=== PATIENT | female | born 1935 | race Caucasian/White ===

== ENCOUNTER 2017-06-13 09:40 | Inpatient (IN) | payer OTHER ==
[~2017-06-13] VITALS: Ht 157.5 cm; Wt 100.2 kg
[~2017-06-13 09:40] MED LIST: ACETAMINOPHEN-1 EAC1 PO; ACETAMINOPHEN325 M1 PO; ALDACTONE25 MG PO; AMLODIPINE BESY10 MG PO; AMOXICILLIN500 MG PO; AQUAPHOR OINTM105 GM TP; AQUAPHOR TP; ARANESP; ARANESP10 MCG/0.4 SC; ARANESP100 MCG/0. IV; ARANESP100 MCG/0. SC; ASPIR 8181 M1 PO; ASPIR-LOW81 MG PO; ASPIRIN EC325 MG PO; ATIVAN0.5 MG PO; ATIVAN1 MG PO; ATORVASTATIN CA40 MG PO; ATROVENT 0.06%15 ML BOTH NARES; ATROVENT 00.5 MG/2.5 IH; BUSPAR10 MG PO; BUSPIRONE HCL10 MG PO; CALAZIME TP; CALCIUM 500 MG1 EACH PO; CALCIUM500 M4 PO; CARVEDILOL12.5 MG PO; CARVEDILOL25 MG PO; CEFDINIR300 MG PO; CENTRUM SILVER1 EAC3 PO; CERTAVITE SR W1 EACH PO; CERTAVITE WITH1 EAC1 PO; CIPRO500 MG PO; COLACE100 MG PO; COLCRYS0.6 MG PO; COREG12.5 M1 PO; COREG25 M1 PO; COZAAR25 MG PO; COZAAR50 MG PO; CYANOCOBAL1000 MCG/2 IM; CYMBALTA30 MG PO; CYMBALTA60 MG PO; DAILY VALUE1 EACH PO; DELTASONE20 M1 PO; DOCUSATE SODIU100 MG PO; DULCOLAX10 MG PR; DULOXETINE HCL60 MG PO; DUONEB 2.5-0.5 M3 ML AEROSOL; DUONEB 2.5-0.5 M3 ML IH; EFFEXOR XR150 MG PO; FERGON240 MG PO; FERROUS GLUCON240 MG PO; FERROUS GLUCON324 MG PO; FERROUS SULFAT325 MG PO; FISH OIL 1,2001 EAC5 PO; FUROSEMIDE40 MG PO; FUROSEMIDE80 MG PO; GARAMYCIN5 M1 BOTH EYES; GLUCO BURST37.5 GM PO; GOLD BOND MEDI283 G1 TP; HUMALOG100 UNIT/1 SC; HUMALOG100 UNIT/2 SC; HYDROCODON-ACE1 EAC7 PO; IMDUR30 MG PO; INVANZ1 GM IM; INVANZ1 GM IV; IPRATR-ALBUTEROL3 ML IH; IPRATROPIU0.2 MG/1 M IH; ISOSORBIDE MONO30 MG PO; KETOCONAZOLE60 GM TP; LANTUS 10100 UNITS/ SC; LANTUS 3 M100 UNITS1 SC; LASIX20 MG PO; LASIX40 MG PO; LASIX40 MG/4 ML IM; LASIX80 MG PO; LEVAQUIN250 MG PO; LEVAQUIN500 MG PO; LEXAPRO20 MG PO; LIPITOR40 MG PO; LO-DOSE ASPIRIN81 M1 PO; LOSARTAN POTASS25 MG PO; LOTRIMIN AF24 GM TP; LOTRIMIN ULTRA12 GM TP; LOW DOSE ASPIRI81 M1 PO; MELATIN3 MG PO; MILK OF MAGN PO; MIRALAX255 GM PO; MONUROL SACHET 33 GM PO; MOVE FREE ULTR1 EACH PO; MULTIPLE VITAM1 EACH PO; NITROSTAT0.4 MG SL; NORCO 5/3251 TABLET PO; NORVASC10 MG PO; NORVASC5 MG PO; NOVOLIN,HU100 UNITS1 SC; NOVOLOG 10100 UNITS/ SC; NYAMYC60 GM TP; NYSTATIN60 GM TP; NYSTOP60 GM TP; OMEGA 3-6-9 CO1 EACH PO; OMEGA-3 1,0001 EAC1 PO; OMEGA-3 FISH O1 EAC8 PO; OMEGA-31000 M1 PO; OMEPRAZOLE20 MG PO; ONE-A-DAY ESSE1 EAC1 PO; OXYCODONE-ACET1 EACH PO; PERCOCET 5/31 TABLET PO; PHILLIPS'400 MG/5 M PO; PREDNISONE10 MG PO; PREDNISONE20 MG PO; PREDNISONE5 MG PO; PRILOSEC20 MG PO; ROCEPHIN2 GM/50 ML IV; SENNA PLUS TAB1 EACH PO; SPIRIVA RESPIMAT4 GM IH; SPIRONOLACTONE25 MG PO; TRAZODONE HCL50 MG PO; TUMS500 MG PO; TYLENOL REGULA325 MG PO; TYLENOL WITH C1 EACH PO; Tums,OsCal PO; VITAMIN D31000 UNI2 PO; ZITHROMAX250 MG PO; [UNRECOGNIZED DRUG - OTHER] PO
[2017-06-13 10:02] LABS: POINT-OF-CARE METER ID UU13113747
[2017-06-13 10:39] LABS: HEMATOCRIT 40.4 % (36.0-46.0); MCH 29.2 PG (29.0-34.0); MCHC 32.9 G/DL (30.0-36.0); MCV 88.8 FL (83-99); MEAN PLAT.VOLUME 11.1 uM^3 (9.5-12.4); PLATELET COUNT 184 K/uL (156-360); RBC DIS.WIDTH-CV 12.1 % (11.8-14.6); RBC DIS.WIDTH-SD 39.1 % (39-53); RED BLOOD COUNT 4.55 M/uL (3.80-5.20); WHITE BLOOD COUNT 9.6 K/uL (4.1-10.2)
[2017-06-13 10:53] LABS: CHLORIDE 106 mEq/L (99-109); POTASSIUM 4.3 mEq/L (3.7-5.4); SODIUM 143 mEq/L (136-147)
[2017-06-13 10:54] LABS: GLUCOSE 151 mg/dL (70-99)
[2017-06-13 10:56] LABS: ANION GAP 8 MEQ/L (2-14)
[2017-06-13 10:58] LABS: GFR ESTIMATE (CALCULATED) 46 mL/min/
[2017-06-13 10:59] LABS: UREA NITROGEN (BUN) 40 mg/dL (9-23)
[2017-06-13 10:59] LABS: TROP-I INTERPRETATION NEGATIVE; TROPONIN-I 0.02 ng/mL (0.0-0.30)
[2017-06-13 11:43] LABS: ADD MIUA? YES; BILIRUBIN NEGATIVE; BLOOD LARGE; COLOR YELLOW ((YELLOW)); GLUCOSE (STRIP) NEGATIVE; KETONES NEGATIVE; LEUKOCYTES LARGE; NITRITE NEGATIVE; PROTEIN (STRIP) 30; SPECIFIC GRAVITY 1.013 (1.000-1.030); UROBILINOGEN 0.2 MG/DL (0.2-1.0)
[2017-06-13 11:51] LABS: BACTERIA 3+ /HPF; EPITHELIAL CELLS RARE /HPF; MUCUS TRACE /LPF; RED BLOOD CELLS TNTC /HPF (0-5); UCUL ADDED? YES; WHITE BLOOD CELLS 30-40 /HPF (0-5); WHITE BLOOD CELLS CLUMP RARE /HPF (0-5)
[2017-06-13] MEDS ORDERED: ABILIFY2 MG PO (20:21)
[2017-06-13] MEDS ORDERED: LITE COAT ASPI325 M1 PO (20:22)
[2017-06-13] MEDS ORDERED: LIPITOR40 MG PO (20:23)
[2017-06-13] MEDS ORDERED: BUSPAR10 MG PO (20:25)
[2017-06-13] MEDS ORDERED: CERTAVITE SR W1 EACH PO (20:28)
[2017-06-13] MEDS ORDERED: EFFEXOR XR75 MG PO (20:37)
[2017-06-13] MEDS ORDERED: FERGON324 MG PO (20:41)
[2017-06-13] MEDS ORDERED: LANTUS 10100 UNITS/ SC ×2 (20:42→20:43)
[2017-06-13] MEDS ORDERED: LASIX40 MG PO (20:46)
[2017-06-13] MEDS ORDERED: ZITHROMAX250 MG PO (20:52)
[2017-06-13] MEDS ORDERED: BUSPIRONE HCL15 MG PO (20:54)
[2017-06-13 20:55] LABS: BASE EXCESS 3.2 mEq/L (-3 to +3); BICARBONATE 28.5 mEq/L (22-26); CARBOXY HGB 2.2 % (0-5); COMMENTS - BLOOD GASES A+C+; DEVICE NC; METHEMOGLOBIN 1.1 % (0-1.5); O2 FLOW 3 L/MIN; PCO2 45 mm Hg (35-45); PO2 66 mm Hg (80-100); SITE RR; pH 7.41 (7.35-7.45)
[2017-06-13] MEDS ORDERED: TRAZODONE HCL50 MG PO (21:04)
[2017-06-13] MEDS ORDERED: MIRALAX17 GM PO (21:06)
[2017-06-13 21:58] VITALS: BP 145/79
[2017-06-14 06:18] LABS: POINT-OF-CARE METER ID UU13113725
[2017-06-14 06:35] LABS: EOSINOPHIL (%) 3.1 % (0-5); EOSINOPHIL COUNT 0.3 K/uL (0-0.3); HEMATOCRIT 39.5 % (36.0-46.0); IMMATURE GRANULOCYTE (%) 0.5 % (0.0-0.7); INSTRUMENT ABS NEUTROPHIL CT 5.6 K/uL; LYMPHOCYTE COUNT 1.9 K/uL (1.0-2.8); MCH 29.4 PG (29.0-34.0); MCHC 32.9 G/DL (30.0-36.0); MCV 89.4 FL (83-99); MEAN PLAT.VOLUME 11.4 uM^3 (9.5-12.4); MONOCYTE (%) 9.8 % (3-12); MONOCYTE COUNT 0.9 K/uL (0-0.8); NEUTROPHIL (%) 64.6 % (45-76); NEUTROPHIL COUNT 5.6 K/uL (1.8-6.4); PLATELET COUNT 184 K/uL (156-360); RBC DIS.WIDTH-CV 12.3 % (11.8-14.6); RBC DIS.WIDTH-SD 40.1 % (39-53); RED BLOOD COUNT 4.42 M/uL (3.80-5.20); WHITE BLOOD COUNT 8.7 K/uL (4.1-10.2)
[2017-06-14 06:59] LABS: ANION GAP 8 MEQ/L (2-14); CHLORIDE 106 MEQ/L (99-109); GFR ESTIMATE (CALCULATED) 56 mL/min/; GLUCOSE 141 mg/dL (70-99); POTASSIUM 3.9 MEQ/L (3.7-5.4); SAMPLE HEMOLYSIS CHECK 0; SAMPLE ICTERIC CHECK 0; SAMPLE LIPEMIA CHECK 0; SODIUM 142 MEQ/L (136-147); UREA NITROGEN (BUN) 34 mg/dL (9-23)
[2017-06-14 07:40] VITALS: BP 158/114
[2017-06-14 10:31] VITALS: BP 141/88
[2017-06-14 16:03] VITALS: BP 90/52
[2017-06-14 19:17] VITALS: BP 118/58
[2017-06-14 22:10] LABS: POINT-OF-CARE METER ID UU13113725
[2017-06-14 22:39] VITALS: BP 140/64
[2017-06-15] VITALS (7 sets, daily range): BP systolic 114–179; BP diastolic 53–79
[2017-06-15 07:02] LABS: HEMATOCRIT 34.2 % (36.0-46.0); MCH 29.2 PG (29.0-34.0); MCHC 32.2 G/DL (30.0-36.0); MCV 90.7 FL (83-99); MEAN PLAT.VOLUME 11.3 uM^3 (9.5-12.4); PLATELET COUNT 152 K/uL (156-360); RBC DIS.WIDTH-CV 12.4 % (11.8-14.6); RBC DIS.WIDTH-SD 41.1 % (39-53); RED BLOOD COUNT 3.77 M/uL (3.80-5.20)
[2017-06-15 07:03] LABS: ANION GAP 8 MEQ/L (2-14); CHLORIDE 106 MEQ/L (99-109); GFR ESTIMATE (CALCULATED) 42 mL/min/; GLUCOSE 128 mg/dL (70-99); MAGNESIUM 2.1 mg/dl (1.3-2.7); POTASSIUM 4.1 MEQ/L (3.7-5.4); SAMPLE HEMOLYSIS CHECK 0; SAMPLE ICTERIC CHECK 0; SAMPLE LIPEMIA CHECK 0; SODIUM 139 MEQ/L (136-147); UREA NITROGEN (BUN) 41 mg/dL (9-23)
[2017-06-16 03:06] VITALS: BP 184/89
[2017-06-16 07:55] VITALS: BP 118/74
[2017-06-16 11:40] VITALS: BP 128/66
[2017-06-16 11:42] LABS: HEMATOCRIT 33.7 % (36.0-46.0); MCHC 33.2 G/DL (30.0-36.0); MCV 90.3 FL (83-99); MEAN PLAT.VOLUME 12.1 uM^3 (9.5-12.4); PLATELET COUNT 179 K/uL (156-360); RBC DIS.WIDTH-CV 12.3 % (11.8-14.6); RBC DIS.WIDTH-SD 40.2 % (39-53); RED BLOOD COUNT 3.73 M/uL (3.80-5.20); WHITE BLOOD COUNT 12.6 K/uL (4.1-10.2)
[2017-06-16 15:50] VITALS: BP 140/84
[2017-06-16 19:45] VITALS: BP 173/77
[2017-06-16 23:27] VITALS: BP 154/74
[2017-06-17 03:00] VITALS: BP 169/71
[2017-06-17 07:39] VITALS: BP 149/67
[2017-06-17] MEDS ORDERED: INVANZ1 GM IM (09:57)
[2017-06-17 10:07] LABS: ANION GAP 9 MEQ/L (2-14); CHLORIDE 107 MEQ/L (99-109); POTASSIUM 4.6 MEQ/L (3.7-5.4); SAMPLE HEMOLYSIS CHECK 0; SAMPLE ICTERIC CHECK 0; SAMPLE LIPEMIA CHECK 0; SODIUM 139 MEQ/L (136-147)
[2017-06-17 10:14] LABS: GFR ESTIMATE (CALCULATED) 56 mL/min/; UREA NITROGEN (BUN) 40 mg/dL (9-23)
[2017-06-17 10:15] LABS: GLUCOSE 325 mg/dL (70-99)
== END 2017-06-17 15:47 | DRG 70 ==
LOC: EME → EDBD 09:40 → EME 09:40 → 5EAST 20:18 → EDOF 20:18 → ENRESERV 20:24 → 5EAST 21:48 → ENPENDDIS 06-17 → 5EAST 06-17 15:47
PROVIDERS: Emergency Medicine; Hospitalist; Internal Medicine
DX: G93.41 Metabolic encephalopathy (principal); J96.21 Acute and chronic respiratory failure with hypoxia; N39.0 Urinary tract infection, site not specified; I50.42 Chronic combined systolic (congestive) and diastolic (congestive) heart failure; J44.1 Chronic obstructive pulmonary disease with (acute) exacerbation; I13.0 Hypertensive heart and chronic kidney disease with heart failure and stage 1 through stage 4 chronic kidney disease, or unspecified chronic kidney disease; F31.9 Bipolar disorder, unspecified; E66.01 Morbid (severe) obesity due to excess calories; E11.22 Type 2 diabetes mellitus with diabetic chronic kidney disease; I42.9 Cardiomyopathy, unspecified; I25.10 Atherosclerotic heart disease of native coronary artery without angina pectoris; J20.9 Acute bronchitis, unspecified; E66.9 Obesity, unspecified; E78.5 Hyperlipidemia, unspecified; I71.4 Abdominal aortic aneurysm, without rupture; J98.11 Atelectasis; B96.20 Unspecified Escherichia coli [E. coli] as the cause of diseases classified elsewhere; F03.90 Unspecified dementia, unspecified severity, without behavioral disturbance, psychotic disturbance, mood disturbance, and anxiety; Z95.1 Presence of aortocoronary bypass graft; Z16.12 Extended spectrum beta lactamase (ESBL) resistance; Z87.891 Personal history of nicotine dependence
CPT/HCPCS: 36600; 71010; 71020; 74176; 78580; 80048; 81003; 82803; 82948; 83735; 83880; 84484; 85025; 85027; 85379; 87040; 87077; 87086; 87186; 93005; 93306; 93970; 94640; 94640 76; 94799; 99202; 99281; 99285; A9540; J0360; J0692; J0696; J1335; J1630; J1644; J2060; J2920; J2930; J7030; J7050

== ENCOUNTER 2017-11-20 01:06 | Inpatient (IN) | payer OTHER ==
[~2017-11-20] VITALS: Ht 157.5 cm; Wt 98.2 kg
[~2017-11-20 01:06] MED LIST changes: +ABILIFY2 MG PO; +BUSPIRONE HCL15 MG PO; +EFFEXOR XR75 MG PO; +FERGON324 MG PO; +LITE COAT ASPI325 M1 PO; +MIRALAX17 GM PO
[2017-11-20 02:07] LABS: BASOPHIL (%) 0.5 % (0-1); EOSINOPHIL (%) 4.5 % (0-5); EOSINOPHIL COUNT 0.3 K/uL (0-0.3); HEMATOCRIT 39.8 % (36.0-46.0); HEMOGLOBIN 13.1 G/DL (11.9-15.5); IMMATURE GRANULOCYTE (%) 0.5 % (0.0-0.7); LYMPHOCYTE COUNT 1.4 K/uL (1.0-2.8); MCH 28.9 PG (29.0-34.0); MCHC 32.9 G/DL (30.0-36.0); MCV 87.7 FL (83-99); MONOCYTE (%) 13.6 % (3-12); MONOCYTE COUNT 0.9 K/uL (0-0.8); NEUTROPHIL (%) 59.9 % (45-76); PLATELET COUNT 180 K/uL (156-360); RBC DIS.WIDTH-CV 13.2 % (11.8-14.6); RBC DIS.WIDTH-SD 42.7 % (39-53); RED BLOOD COUNT 4.54 M/uL (3.80-5.20); WHITE BLOOD COUNT 6.6 K/uL (4.1-10.2)
[2017-11-20 02:16] LABS: CHLORIDE 103 mEq/L (99-109); SODIUM 140 mEq/L (136-147)
[2017-11-20 02:18] LABS: GLUCOSE 99 mg/dL (70-99)
[2017-11-20 02:22] LABS: CREATININE 0.9 mg/dL (0.6-1.3); GFR ESTIMATE (CALCULATED) > 59 mL/min/
[2017-11-20 02:23] LABS: UREA NITROGEN (BUN) 23 mg/dL (9-23)
[2017-11-20 02:28] LABS: TROP-I INTERPRETATION NEGATIVE; TROPONIN-I 0.03 ng/mL (0.0-0.30)
[2017-11-20 02:49] LABS: APPEARANCE SL.HAZY ((CLEAR)); BILIRUBIN NEGATIVE; BLOOD SMALL; COLOR YELLOW ((YELLOW)); GLUCOSE (STRIP) NEGATIVE; KETONES NEGATIVE; LEUKOCYTES MODERATE; NITRITE NEGATIVE; PROTEIN (STRIP) 100; SPECIFIC GRAVITY 1.013 (1.000-1.030); UROBILINOGEN 0.2 MG/DL (0.2-1.0)
[2017-11-20 02:52] LABS: BACTERIA NONE SEEN /HPF; EPITHELIAL CELLS 1+ /HPF; MUCUS TRACE /LPF; UCUL ADDED? YES; WHITE BLOOD CELLS 15-20 /HPF (0-5)
[2017-11-20] MEDS ORDERED: AMLODIPINE BESYL5 MG PO (03:58)
[2017-11-20] MEDS ORDERED: MITIGARE0.6 MG PO (04:05)
[2017-11-20] MEDS ORDERED: VITAMIN B122500 MCG PO (04:06)
[2017-11-20] MEDS ORDERED: CYANOCOBALAM1000 MCG PO (04:07)
[2017-11-20] MEDS ORDERED: LANTUS 10100 UNITS/ SC ×2 (04:09→04:10)
[2017-11-20] MEDS ORDERED: DAILY VALUE1 EACH PO (04:11)
[2017-11-20 06:48] VITALS: BP 136/74
[2017-11-20 09:20] VITALS: BP 167/86
[2017-11-20 12:03] VITALS: BP 114/57
[2017-11-20 13:02] LABS: FOLIC ACID (FOLATE) > 22.0 NG/ML (5.0-22.0)
[2017-11-20 15:28] VITALS: BP 107/58
[2017-11-20 19:45] VITALS: BP 108/57
[2017-11-20 23:55] VITALS: BP 135/66
[2017-11-21 09:54] VITALS: BP 127/59
[2017-11-21 12:29] VITALS: BP 124/69
[2017-11-21] MEDS ORDERED: DUONEB 2.5-0.5 M3 ML AEROSOL (13:05)
[2017-11-21] MEDS ORDERED: ACETAMINOPHEN325 M1 PO (15:28)
[2017-11-21 16:15] VITALS: BP 129/60
[2017-11-21 19:45] VITALS: BP 128/58
[2017-11-21 23:56] VITALS: BP 104/59
[2017-11-22 09:17] VITALS: BP 107/55
[2017-11-22 11:11] LABS: HEMATOCRIT 33.5 % (36.0-46.0); MCH 28.8 PG (29.0-34.0); MCHC 31.9 G/DL (30.0-36.0); MCV 90.1 FL (83-99); PLATELET COUNT 163 K/uL (156-360); RBC DIS.WIDTH-CV 13.4 % (11.8-14.6); RBC DIS.WIDTH-SD 43.9 % (39-53); RED BLOOD COUNT 3.72 M/uL (3.80-5.20); WHITE BLOOD COUNT 4.6 K/uL (4.1-10.2)
[2017-11-22 11:16] LABS: HEMOGLOBIN 10.7 G/DL (11.9-15.5)
[2017-11-22 11:33] LABS: CHLORIDE 104 MEQ/L (99-109); CREATININE 1.2 MG/DL (0.6-1.3); GFR ESTIMATE (CALCULATED) 46 mL/min/; POTASSIUM 3.9 MEQ/L (3.7-5.4); SODIUM 139 MEQ/L (136-147)
[2017-11-22 11:35] LABS: GLUCOSE 191 mg/dL (70-99); UREA NITROGEN (BUN) 40 mg/dL (9-23)
[2017-11-22 12:03] VITALS: BP 89/50
[2017-11-22 12:38] VITALS: BP 90/59
[2017-11-22 16:42] VITALS: BP 113/56
[2017-11-22 19:00] VITALS: BP 122/58
[2017-11-22 20:31] VITALS: BP 141/68
[2017-11-23 00:01] VITALS: BP 167/76
[2017-11-23 04:20] VITALS: BP 117/60
[2017-11-23 08:11] VITALS: BP 126/56
[2017-11-23 11:40] VITALS: BP 104/54
[2017-11-23] MEDS ORDERED: CEFTRIAXONE1 G1 IM (11:41)
[2017-11-23 16:20] VITALS: BP 110/57
== END 2017-11-23 17:03 | DRG 689 ==
LOC: EME → EDBD 01:06 → EDOF 04:33 → ENRESERV 04:34 → 5WEST 05:51
PROVIDERS: Emergency Medicine; Hospitalist
DX: N39.0 Urinary tract infection, site not specified (principal); B96.20 Unspecified Escherichia coli [E. coli] as the cause of diseases classified elsewhere; G93.41 Metabolic encephalopathy; R78.81 Bacteremia; J44.9 Chronic obstructive pulmonary disease, unspecified; J96.11 Chronic respiratory failure with hypoxia; J96.12 Chronic respiratory failure with hypercapnia; Z99.81 Dependence on supplemental oxygen; F03.91 Unspecified dementia, unspecified severity, with behavioral disturbance; F05 Delirium due to known physiological condition; I13.0 Hypertensive heart and chronic kidney disease with heart failure and stage 1 through stage 4 chronic kidney disease, or unspecified chronic kidney disease; I50.42 Chronic combined systolic (congestive) and diastolic (congestive) heart failure; N18.9 Chronic kidney disease, unspecified; E11.22 Type 2 diabetes mellitus with diabetic chronic kidney disease; D63.1 Anemia in chronic kidney disease; I95.9 Hypotension, unspecified; Z66 Do not resuscitate; E66.01 Morbid (severe) obesity due to excess calories; Z68.38 Body mass index [BMI] 38.0-38.9, adult; E78.5 Hyperlipidemia, unspecified; I08.0 Rheumatic disorders of both mitral and aortic valves; I49.5 Sick sinus syndrome; I48.0 Paroxysmal atrial fibrillation; I42.9 Cardiomyopathy, unspecified; I71.4 Abdominal aortic aneurysm, without rupture; K21.9 Gastro-esophageal reflux disease without esophagitis; G47.00 Insomnia, unspecified; J30.9 Allergic rhinitis, unspecified; M10.9 Gout, unspecified; R32 Unspecified urinary incontinence; F41.9 Anxiety disorder, unspecified; F32.9 Major depressive disorder, single episode, unspecified; R29.6 Repeated falls; Z79.4 Long term (current) use of insulin; Z79.82 Long term (current) use of aspirin; Z95.0 Presence of cardiac pacemaker; Z87.891 Personal history of nicotine dependence; J98.11 Atelectasis; Z74.01 Bed confinement status; Z87.440 Personal history of urinary (tract) infections
CPT/HCPCS: 36600; 70450; 71045; 80048; 80202; 81003; 82607; 82746; 82803; 82948; 83605; 84484; 85025; 85027; 87040; 87077; 87086; 87186; 87502; 87641; 87801; 93005; 94799; 99202; 99281; 99285; G0378; J0696; J1335; J1644; J1956; J3370; J7030; J7040; J7050

== ENCOUNTER 2017-11-24 00:48 | Emergency (ER) | payer OTHER ==
[~2017-11-24] VITALS: Ht 162.6 cm; Wt 95.8 kg
[~2017-11-24 00:48] MED LIST changes: +AMLODIPINE BESYL5 MG PO; +CEFTRIAXONE1 G1 IM; +CYANOCOBALAM1000 MCG PO; +MITIGARE0.6 MG PO; +VITAMIN B122500 MCG PO
[2017-11-24 01:42] LABS: HEMATOCRIT 34.3 % (36.0-46.0); HEMOGLOBIN 11.1 G/DL (11.9-15.5); MCH 28.6 PG (29.0-34.0); MCHC 32.4 G/DL (30.0-36.0); MCV 88.4 FL (83-99); PLATELET COUNT 175 K/uL (156-360); RBC DIS.WIDTH-CV 13.2 % (11.8-14.6); RBC DIS.WIDTH-SD 42.7 % (39-53); RED BLOOD COUNT 3.88 M/uL (3.80-5.20); WHITE BLOOD COUNT 5.6 K/uL (4.1-10.2)
[2017-11-24 01:54] LABS: CHLORIDE 107 mEq/L (99-109); POTASSIUM 4.2 mEq/L (3.7-5.4); SODIUM 140 mEq/L (136-147)
[2017-11-24 02:00] LABS: CREATININE 1.1 mg/dL (0.6-1.3); GFR ESTIMATE (CALCULATED) 50 mL/min/
[2017-11-24 02:01] LABS: UREA NITROGEN (BUN) 39 mg/dL (9-23)
[2017-11-24 02:03] LABS: LIPASE 19 U/L (1.0-51.0)
[2017-11-24 02:13] LABS: GLUCOSE 115 mg/dL (70-99)
[2017-11-24 05:01] VITALS: BP 140/76
== END 2017-11-24 05:17 ==
LOC: EME → EDBD 00:48 → EME 00:48
PROVIDERS: Emergency Medicine
DX: F03.91 Unspecified dementia, unspecified severity, with behavioral disturbance (principal); F32.9 Major depressive disorder, single episode, unspecified; Z87.440 Personal history of urinary (tract) infections; I50.9 Heart failure, unspecified; I13.0 Hypertensive heart and chronic kidney disease with heart failure and stage 1 through stage 4 chronic kidney disease, or unspecified chronic kidney disease; K21.9 Gastro-esophageal reflux disease without esophagitis; F41.9 Anxiety disorder, unspecified; E78.5 Hyperlipidemia, unspecified; J44.9 Chronic obstructive pulmonary disease, unspecified; M10.9 Gout, unspecified; Z95.0 Presence of cardiac pacemaker; Z79.4 Long term (current) use of insulin; Z79.82 Long term (current) use of aspirin; Z88.0 Allergy status to penicillin; Z87.891 Personal history of nicotine dependence
CPT/HCPCS: 80048; 82140; 83690; 85027

== ENCOUNTER 2017-12-08 20:09 | Inpatient (IN) | payer OTHER ==
[~2017-12-08] VITALS: Ht 160 cm; Wt 98.6 kg
[2017-12-08 20:40] LABS: HEMATOCRIT 35.4 % (36.0-46.0); HEMOGLOBIN 11.6 G/DL (11.9-15.5); MCHC 32.8 G/DL (30.0-36.0); MCV 88.5 FL (83-99); PLATELET COUNT 201 K/uL (156-360); RBC DIS.WIDTH-CV 13.7 % (11.8-14.6); RBC DIS.WIDTH-SD 44.6 % (39-53); WHITE BLOOD COUNT 8.7 K/uL (4.1-10.2)
[2017-12-08 20:49] LABS: CHLORIDE 107 mEq/L (99-109); POTASSIUM 4.8 mEq/L (3.7-5.4); SODIUM 140 mEq/L (136-147)
[2017-12-08 20:51] LABS: GLUCOSE 177 mg/dL (70-99)
[2017-12-08 20:55] LABS: CREATININE 0.9 mg/dL (0.6-1.3); GFR ESTIMATE (CALCULATED) > 59 mL/min/
[2017-12-08 20:56] LABS: UREA NITROGEN (BUN) 27 mg/dL (9-23)
[2017-12-08 21:01] LABS: TROP-I INTERPRETATION NEGATIVE; TROPONIN-I 0.02 ng/mL (0.0-0.30)
[2017-12-08 22:12] LABS: BASE EXCESS 2.4 mEq/L (-3 to +3); BICARBONATE 28.3 mEq/L (22-26); CARBOXY HGB 1.9 % (0-5); METHEMOGLOBIN 1.1 % (0-1.5); PCO2 49 mm Hg (35-45); PO2 72 mm Hg (80-100); pH 7.37 (7.35-7.45)
[2017-12-08 22:13] LABS: COMMENTS - BLOOD GASES A+C+; DEVICE HFNC; O2 FLOW 13 L/MIN; SITE RR; TOTAL RESP RATE 16 resp/min
[2017-12-08] MEDS ORDERED: TRAZODONE HCL50 MG PO (22:15)
[2017-12-08] MEDS ORDERED: EFFEXOR XR75 MG PO (22:16)
[2017-12-08] MEDS ORDERED: MUCINEX600 MG PO (22:20)
[2017-12-08] MEDS ORDERED: ATIVAN1 MG PO (22:21)
[2017-12-08] MEDS ORDERED: ROBITUSSIN DM118 ML PO (22:24)
[2017-12-09 02:31] VITALS: BP 143/65
[2017-12-09 03:01] LABS: ALBUMIN 3.6 g/dL (3.2-4.8)
[2017-12-09 03:03] LABS: TOTAL PROTEIN 6.8 g/dL (6.4-8.3)
[2017-12-09 03:05] LABS: TOTAL BILIRUBIN 0.4 mg/dL (0.0-1.0)
[2017-12-09 03:06] LABS: ALKALINE PHOSPHATASE 137 IU/L (3-129)
[2017-12-09 03:09] LABS: ALT (GPT) 30 IU/L (3-49); AST (GOT) 28 IU/L (2-34); DIRECT BILIRUBIN 0.1 mg/dL (0.0-0.3)
[2017-12-09 03:16] LABS: TROP-I INTERPRETATION NEGATIVE; TROPONIN-I 0.02 ng/mL (0.0-0.30)
[2017-12-09 06:59] VITALS: BP 167/74
[2017-12-09 09:03] LABS: HEMATOCRIT 39.3 % (36.0-46.0); HEMOGLOBIN 12.6 G/DL (11.9-15.5); MCH 28.7 PG (29.0-34.0); MCHC 32.1 G/DL (30.0-36.0); MCV 89.5 FL (83-99); PLATELET COUNT 195 K/uL (156-360); RBC DIS.WIDTH-CV 13.7 % (11.8-14.6); RBC DIS.WIDTH-SD 45.4 % (39-53); RED BLOOD COUNT 4.39 M/uL (3.80-5.20); WHITE BLOOD COUNT 6.5 K/uL (4.1-10.2)
[2017-12-09 09:26] LABS: ALBUMIN 3.7 G/DL (3.2-4.8); ALKALINE PHOSPHATASE 128 IU/L (3-129); ALT (GPT) 26 IU/L (3-49); AST (GOT) 20 IU/L (2-34); CHLORIDE 106 MEQ/L (99-109); CREATININE 0.9 MG/DL (0.6-1.3); GFR ESTIMATE (CALCULATED) > 59 mL/min/; GLUCOSE 214 mg/dL (70-99); POTASSIUM 4.8 MEQ/L (3.7-5.4); SODIUM 141 MEQ/L (136-147); TOTAL BILIRUBIN 0.4 MG/DL (0.0-1.0); TOTAL PROTEIN 6.8 G/DL (6.4-8.3); UREA NITROGEN (BUN) 27 mg/dL (9-23)
[2017-12-09 09:44] LABS: TROP-I INTERPRETATION NEGATIVE; TROPONIN-I < 0.01 ng/mL (0.0-0.30)
[2017-12-09 11:00] VITALS: BP 152/71
[2017-12-09 15:07] VITALS: BP 146/79
[2017-12-09 20:00] VITALS: BP 105/55
[2017-12-09 20:29] LABS: APPEARANCE CLOUDY ((CLEAR)); BILIRUBIN NEGATIVE; BLOOD NEGATIVE; COLOR AMBER ((YELLOW)); GLUCOSE (STRIP) 50; KETONES 5; LEUKOCYTES MODERATE; NITRITE NEGATIVE; PROTEIN (STRIP) 100; SPECIFIC GRAVITY 1.018 (1.000-1.030); UROBILINOGEN 0.2 MG/DL (0.2-1.0)
[2017-12-09 22:12] LABS: RED BLOOD CELLS RARE /HPF (0-5)
[2017-12-09 22:13] LABS: BACTERIA 1+ /HPF; EPITHELIAL CELLS 1+ /HPF; MUCUS NONE SEEN /LPF; UCUL ADDED? YES
[2017-12-09 22:14] LABS: OTHER BUDDING YEAST 3+
[2017-12-10] VITALS (7 sets, daily range): BP systolic 102–137; BP diastolic 51–83
[2017-12-10 08:20] LABS: ALBUMIN 3.5 G/DL (3.2-4.8); ALKALINE PHOSPHATASE 106 IU/L (3-129); ALT (GPT) 21 IU/L (3-49); AST (GOT) 15 IU/L (2-34); CHLORIDE 106 MEQ/L (99-109); CREATININE 1.6 MG/DL (0.6-1.3); GFR ESTIMATE (CALCULATED) 33 mL/min/; GLUCOSE 260 mg/dL (70-99); POTASSIUM 4.8 MEQ/L (3.7-5.4); SODIUM 141 MEQ/L (136-147); TOTAL BILIRUBIN 0.3 MG/DL (0.0-1.0); TOTAL PROTEIN 6.6 G/DL (6.4-8.3); UREA NITROGEN (BUN) 42 mg/dL (9-23)
[2017-12-10 08:37] LABS: BASOPHIL (%) 0.1 % (0-1); EOSINOPHIL (%) 0 % (0-5); HEMATOCRIT 34.8 % (36.0-46.0); HEMOGLOBIN 11.2 G/DL (11.9-15.5); IMMATURE GRANULOCYTE (%) 0.4 % (0.0-0.7); LYMPHOCYTE (%) 12.5 % (15-42); LYMPHOCYTE COUNT 1.5 K/uL (1.0-2.8); MCH 29.2 PG (29.0-34.0); MCHC 32.2 G/DL (30.0-36.0); MCV 90.6 FL (83-99); MONOCYTE (%) 3.2 % (3-12); MONOCYTE COUNT 0.4 K/uL (0-0.8); NEUTROPHIL (%) 83.8 % (45-76); NEUTROPHIL COUNT 10.2 K/uL (1.8-6.4); PLATELET COUNT 193 K/uL (156-360); RBC DIS.WIDTH-CV 14.1 % (11.8-14.6); RBC DIS.WIDTH-SD 46.6 % (39-53); RED BLOOD COUNT 3.84 M/uL (3.80-5.20); WHITE BLOOD COUNT 12.1 K/uL (4.1-10.2)
[2017-12-11 03:40] VITALS: BP 124/81
[2017-12-11 06:46] LABS: BASOPHIL (%) 0.1 % (0-1); EOSINOPHIL (%) 0 % (0-5); HEMATOCRIT 34.9 % (36.0-46.0); HEMOGLOBIN 11.1 G/DL (11.9-15.5); IMMATURE GRANULOCYTE (%) 0.7 % (0.0-0.7); LYMPHOCYTE (%) 12.2 % (15-42); LYMPHOCYTE COUNT 1.5 K/uL (1.0-2.8); MCH 28.7 PG (29.0-34.0); MCHC 31.8 G/DL (30.0-36.0); MCV 90.2 FL (83-99); MONOCYTE (%) 6.5 % (3-12); MONOCYTE COUNT 0.8 K/uL (0-0.8); NEUTROPHIL (%) 80.5 % (45-76); NEUTROPHIL COUNT 9.7 K/uL (1.8-6.4); PLATELET COUNT 187 K/uL (156-360); RBC DIS.WIDTH-CV 14.3 % (11.8-14.6); RBC DIS.WIDTH-SD 46.9 % (39-53); RED BLOOD COUNT 3.87 M/uL (3.80-5.20); WHITE BLOOD COUNT 12.1 K/uL (4.1-10.2)
[2017-12-11 07:15] LABS: ALBUMIN 3.5 G/DL (3.2-4.8); ALT (GPT) 20 IU/L (3-49); CHLORIDE 104 MEQ/L (99-109); CREATININE 1.5 MG/DL (0.6-1.3); GFR ESTIMATE (CALCULATED) 35 mL/min/; GLUCOSE 240 mg/dL (70-99); POTASSIUM 4.3 MEQ/L (3.7-5.4); SODIUM 139 MEQ/L (136-147); TOTAL BILIRUBIN 0.3 MG/DL (0.0-1.0); TOTAL PROTEIN 6.5 G/DL (6.4-8.3); UREA NITROGEN (BUN) 58 mg/dL (9-23)
[2017-12-11 07:16] LABS: ALKALINE PHOSPHATASE 97 IU/L (3-129); AST (GOT) 13 IU/L (2-34)
[2017-12-11 08:13] VITALS: BP 120/62
[2017-12-11 12:25] VITALS: BP 124/62
[2017-12-11 16:03] VITALS: BP 113/63
[2017-12-11 19:26] VITALS: BP 82/49
[2017-12-11 19:54] VITALS: BP 124/56
[2017-12-12 03:59] VITALS: BP 131/70
[2017-12-12 06:04] LABS: BASOPHIL (%) 0 % (0-1); EOSINOPHIL (%) 0.1 % (0-5); HEMATOCRIT 33.8 % (36.0-46.0); HEMOGLOBIN 10.8 G/DL (11.9-15.5); IMMATURE GRANULOCYTE (%) 0.4 % (0.0-0.7); LYMPHOCYTE COUNT 2.1 K/uL (1.0-2.8); MCH 28.1 PG (29.0-34.0); MONOCYTE (%) 13.4 % (3-12); MONOCYTE COUNT 1.6 K/uL (0-0.8); NEUTROPHIL (%) 68.1 % (45-76); NEUTROPHIL COUNT 7.8 K/uL (1.8-6.4); PLATELET COUNT 198 K/uL (156-360); RED BLOOD COUNT 3.84 M/uL (3.80-5.20); WHITE BLOOD COUNT 11.5 K/uL (4.1-10.2)
[2017-12-12 06:29] LABS: ALBUMIN 3.6 G/DL (3.2-4.8); ALKALINE PHOSPHATASE 102 IU/L (3-129); ALT (GPT) 26 IU/L (3-49); AST (GOT) 17 IU/L (2-34); CHLORIDE 105 MEQ/L (99-109); CREATININE 1.4 MG/DL (0.6-1.3); GFR ESTIMATE (CALCULATED) 38 mL/min/; GLUCOSE 198 mg/dL (70-99); POTASSIUM 3.8 MEQ/L (3.7-5.4); SODIUM 139 MEQ/L (136-147); TOTAL BILIRUBIN 0.3 MG/DL (0.0-1.0); TOTAL PROTEIN 6.4 G/DL (6.4-8.3); UREA NITROGEN (BUN) 65 mg/dL (9-23)
[2017-12-12 07:58] VITALS: BP 135/63
[2017-12-12 16:00] VITALS: BP 121/63
[2017-12-12 17:18] LABS: CHLORIDE 107 MEQ/L (99-109); CREATININE 1.3 MG/DL (0.6-1.3); GFR ESTIMATE (CALCULATED) 42 mL/min/; GLUCOSE 232 mg/dL (70-99); POTASSIUM 4.2 MEQ/L (3.7-5.4); SODIUM 141 MEQ/L (136-147); UREA NITROGEN (BUN) 65 mg/dL (9-23)
[2017-12-12 23:47] VITALS: BP 108/54
[2017-12-13 07:40] VITALS: BP 145/76
[2017-12-13] MEDS ORDERED: PREDNISONE10 MG PO (13:13)
[2017-12-13] MEDS ORDERED: FUROSEMIDE20 MG PO (13:13)
[2017-12-13] MEDS ORDERED: LEVAQUIN750 MG PO (13:13)
== END 2017-12-13 16:35 | DRG 291 ==
LOC: EME 20:09 → 5SOUTH 12-09 00:50 → EDOF 12-09 00:50 → ENRESERV 12-09 00:52 → EDOF 12-09 01:39 → 5SOUTH 12-09 02:05
PROVIDERS: Emergency Medicine; Hospitalist; Student in an Organized Health Care Education/Training Program
PROC: 5A09357 Assistance with Respiratory Ventilation, Less than 24 Consecutive Hours, Continuous Positive Airway Pressure (ICD-10-PCS; principal; 2017-12-09)
DX: I13.0 Hypertensive heart and chronic kidney disease with heart failure and stage 1 through stage 4 chronic kidney disease, or unspecified chronic kidney disease (principal); I50.23 Acute on chronic systolic (congestive) heart failure; J96.21 Acute and chronic respiratory failure with hypoxia; J96.22 Acute and chronic respiratory failure with hypercapnia; J69.0 Pneumonitis due to inhalation of food and vomit; J44.1 Chronic obstructive pulmonary disease with (acute) exacerbation; E11.22 Type 2 diabetes mellitus with diabetic chronic kidney disease; N18.2 Chronic kidney disease, stage 2 (mild); I48.0 Paroxysmal atrial fibrillation; J98.11 Atelectasis; Z99.81 Dependence on supplemental oxygen; I08.0 Rheumatic disorders of both mitral and aortic valves; I25.10 Atherosclerotic heart disease of native coronary artery without angina pectoris; I25.5 Ischemic cardiomyopathy; I71.4 Abdominal aortic aneurysm, without rupture; E78.5 Hyperlipidemia, unspecified; D50.9 Iron deficiency anemia, unspecified; D51.9 Vitamin B12 deficiency anemia, unspecified; K21.9 Gastro-esophageal reflux disease without esophagitis; L30.4 Erythema intertrigo; F03.90 Unspecified dementia, unspecified severity, without behavioral disturbance, psychotic disturbance, mood disturbance, and anxiety; R32 Unspecified urinary incontinence; M10.9 Gout, unspecified; F32.9 Major depressive disorder, single episode, unspecified; F41.9 Anxiety disorder, unspecified; Z66 Do not resuscitate; H91.90 Unspecified hearing loss, unspecified ear; E66.01 Morbid (severe) obesity due to excess calories; Z68.38 Body mass index [BMI] 38.0-38.9, adult; Z95.0 Presence of cardiac pacemaker; Z95.5 Presence of coronary angioplasty implant and graft; Z80.6 Family history of leukemia; Z83.3 Family history of diabetes mellitus; Z87.440 Personal history of urinary (tract) infections; Z91.81 History of falling; Z87.891 Personal history of nicotine dependence; Z79.4 Long term (current) use of insulin
CPT/HCPCS: 36600; 70450; 71046; 71250; 74230; 78580; 80048; 80048 91; 80053; 80076; 80202; 81003; 82803; 82948; 83880; 84484; 85025; 85027; 85379; 87086; 87502; 92526 GN; 92610 GN; 92611 GN; 93005; 94640; 94640 76; 94667; 94668; 94760; 94799; 99202; 99281; 99285; A9540; J0692; J1644; J1650; J1815; J1940; J2920; J2930; J3370; J7512; S0030

== ENCOUNTER 2018-01-13 17:37 | Inpatient (IN) | payer OTHER ==
[~2018-01-13] VITALS: Ht 157.5 cm; Wt 93.2 kg
[~2018-01-13 17:37] MED LIST changes: +FUROSEMIDE20 MG PO; +LEVAQUIN750 MG PO; +MUCINEX600 MG PO; +ROBITUSSIN DM118 ML PO; +VENLAFAXINE HCL75 M1 PO
[2018-01-13 18:07] LABS: BASOPHIL (%) 0.3 % (0-1); EOSINOPHIL (%) 3.2 % (0-5); EOSINOPHIL COUNT 0.2 K/uL (0-0.3); HEMOGLOBIN 11.5 G/DL (11.9-15.5); IMMATURE GRANULOCYTE (%) 0.7 % (0.0-0.7); LYMPHOCYTE (%) 29.1 % (15-42); MCH 29.3 PG (29.0-34.0); MCHC 32.9 G/DL (30.0-36.0); MCV 89.1 FL (83-99); MONOCYTE (%) 9.7 % (3-12); MONOCYTE COUNT 0.7 K/uL (0-0.8); NEUTROPHIL COUNT 3.9 K/uL (1.8-6.4); PLATELET COUNT 179 K/uL (156-360); RBC DIS.WIDTH-CV 13.6 % (11.8-14.6); RBC DIS.WIDTH-SD 44.2 % (39-53); RED BLOOD COUNT 3.93 M/uL (3.80-5.20); WHITE BLOOD COUNT 6.8 K/uL (4.1-10.2)
[2018-01-13 18:08] LABS: CARBON DIOXIDE (BICARBONATE) 34.8 MEQ/L (20-31)
[2018-01-13 18:18] LABS: CHLORIDE 104 mEq/L (99-109); POTASSIUM 3.9 mEq/L (3.7-5.4); SODIUM 142 mEq/L (136-147)
[2018-01-13 18:19] LABS: GLUCOSE 180 mg/dL (70-99)
[2018-01-13 18:23] LABS: CREATININE 1.1 mg/dL (0.6-1.3); GFR ESTIMATE (CALCULATED) 50 mL/min/
[2018-01-13 18:24] LABS: UREA NITROGEN (BUN) 21 mg/dL (9-23)
[2018-01-13 18:28] LABS: TROP-I INTERPRETATION NEGATIVE; TROPONIN-I 0.03 ng/mL (0.0-0.30)
[2018-01-13 21:04] LABS: CARBON DIOXIDE (BICARBONATE) 33.5 MEQ/L (20-31)
[2018-01-13 22:22] LABS: APPEARANCE SL.HAZY ((CLEAR)); BILIRUBIN NEGATIVE; BLOOD NEGATIVE; COLOR YELLOW ((YELLOW)); GLUCOSE (STRIP) 50; KETONES NEGATIVE; LEUKOCYTES SMALL; NITRITE NEGATIVE; PROTEIN (STRIP) 30; SPECIFIC GRAVITY 1.009 (1.000-1.030); UROBILINOGEN 0.2 MG/DL (0.2-1.0)
[2018-01-13 22:33] LABS: BACTERIA RARE /HPF; EPITHELIAL CELLS RARE /HPF; HYALINE CASTS TNTC /LPF; MUCUS TRACE /LPF; RED BLOOD CELLS 0-5 /HPF (0-5); UCUL ADDED? YES; WHITE BLOOD CELLS 20-30 /HPF (0-5)
[2018-01-13] MEDS ORDERED: FUROSEMIDE20 MG PO (23:31)
[2018-01-14 04:58] VITALS: BP 146/79
[2018-01-14 06:55] VITALS: BP 154/68
[2018-01-14 11:12] VITALS: BP 166/76
[2018-01-14 15:35] VITALS: BP 164/78
[2018-01-14 20:00] VITALS: BP 134/70
[2018-01-15] VITALS: BP 168/78
[2018-01-15 04:00] VITALS: BP 160/73
[2018-01-15 06:14] LABS: HEMATOCRIT 34.7 % (36.0-46.0); HEMOGLOBIN 11.5 G/DL (11.9-15.5); MCHC 33.1 G/DL (30.0-36.0); MCV 87.6 FL (83-99); NRBC (%) 0.4 /100 WBC (0-0); PLATELET COUNT 188 K/uL (156-360); RBC DIS.WIDTH-CV 13.7 % (11.8-14.6); RBC DIS.WIDTH-SD 43.8 % (39-53); RED BLOOD COUNT 3.96 M/uL (3.80-5.20); WHITE BLOOD COUNT 8.5 K/uL (4.1-10.2)
[2018-01-15 07:12] LABS: CHLORIDE 99 MEQ/L (99-109); GFR ESTIMATE (CALCULATED) 56 mL/min/; GLUCOSE 257 mg/dL (70-99); POTASSIUM 4.3 MEQ/L (3.7-5.4); SODIUM 138 MEQ/L (136-147)
[2018-01-15 07:16] LABS: UREA NITROGEN (BUN) 34 mg/dL (9-23)
[2018-01-15 07:56] VITALS: BP 178/73
[2018-01-15 11:03] LABS: INTER. NORMALIZED RATIO 1.3
[2018-01-15 11:06] LABS: PTT 26.3 SEC (25-37)
[2018-01-15 12:00] VITALS: BP 164/73
[2018-01-15 16:25] VITALS: BP 125/64
[2018-01-15 19:27] VITALS: BP 148/71
[2018-01-16 07:40] VITALS: BP 129/66
[2018-01-16 08:52] LABS: CHLORIDE 102 MEQ/L (99-109); POTASSIUM 4.4 MEQ/L (3.7-5.4); SODIUM 137 MEQ/L (136-147)
[2018-01-16 08:57] LABS: GFR ESTIMATE (CALCULATED) 56 mL/min/; GLUCOSE 290 mg/dL (70-99); UREA NITROGEN (BUN) 42 mg/dL (9-23)
[2018-01-16 11:38] VITALS: BP 143/83
[2018-01-16 15:00] VITALS: BP 116/56
[2018-01-16 19:22] LABS: INTER. NORMALIZED RATIO 1.3
[2018-01-16 19:54] VITALS: BP 117/56
[2018-01-17 00:50] VITALS: BP 146/59
[2018-01-17 05:14] VITALS: BP 151/81
[2018-01-17 06:38] LABS: INTER. NORMALIZED RATIO 1.3
[2018-01-17 06:41] LABS: PTT 68.4 SEC (25-37)
[2018-01-17 08:00] VITALS: BP 113/52
[2018-01-17 12:00] VITALS: BP 114/58
[2018-01-17 18:15] VITALS: BP 130/70
[2018-01-18] VITALS: BP 138/74
[2018-01-18 06:00] LABS: HEMATOCRIT 35.1 % (36.0-46.0); HEMOGLOBIN 11.4 G/DL (11.9-15.5); MCH 28.2 PG (29.0-34.0); MCHC 32.5 G/DL (30.0-36.0); MCV 86.9 FL (83-99); PLATELET COUNT 207 K/uL (156-360); RBC DIS.WIDTH-CV 13.4 % (11.8-14.6); RBC DIS.WIDTH-SD 43.1 % (39-53); RED BLOOD COUNT 4.04 M/uL (3.80-5.20); WHITE BLOOD COUNT 11.4 K/uL (4.1-10.2)
[2018-01-18 06:05] LABS: INTER. NORMALIZED RATIO 1.2
[2018-01-18 06:22] LABS: CHLORIDE 101 MEQ/L (99-109); CREATININE 1.1 MG/DL (0.6-1.3); GFR ESTIMATE (CALCULATED) 50 mL/min/; GLUCOSE 216 mg/dL (70-99); POTASSIUM 4.4 MEQ/L (3.7-5.4); SODIUM 139 MEQ/L (136-147); UREA NITROGEN (BUN) 46 mg/dL (9-23)
[2018-01-18 07:28] LABS: PTT 37.1 SEC (25-37)
[2018-01-18 08:09] VITALS: BP 141/65
[2018-01-18] MEDS ORDERED: LOVENOX100 MG/1 M SC (11:41)
[2018-01-18] MEDS ORDERED: NORVASC2.5 MG PO ×2 (11:41→12:07)
[2018-01-18] MEDS ORDERED: COUMADIN1 MG PO (11:41)
[2018-01-18] MEDS ORDERED: ADULT ASPIRIN81 MG PO (11:43)
[2018-01-18] MEDS ORDERED: PREDNISONE10 MG PO (11:45)
== END 2018-01-18 15:06 | DRG 190 ==
LOC: EME 17:37 → 5EAST 01-14 02:15 → EDOF 01-14 02:15 → ENRESERV 01-14 02:16 → 5EAST 01-14 04:55
PROVIDERS: Emergency Medicine; Hospitalist; Internal Medicine; Physician Assistant
DX: J44.1 Chronic obstructive pulmonary disease with (acute) exacerbation (principal); J20.9 Acute bronchitis, unspecified; J96.21 Acute and chronic respiratory failure with hypoxia; I11.0 Hypertensive heart disease with heart failure; I50.9 Heart failure, unspecified; I35.0 Nonrheumatic aortic (valve) stenosis; J44.0 Chronic obstructive pulmonary disease with (acute) lower respiratory infection; E11.9 Type 2 diabetes mellitus without complications; I82.443 Acute embolism and thrombosis of tibial vein, bilateral; E66.9 Obesity, unspecified; I25.10 Atherosclerotic heart disease of native coronary artery without angina pectoris; F03.90 Unspecified dementia, unspecified severity, without behavioral disturbance, psychotic disturbance, mood disturbance, and anxiety; Z99.81 Dependence on supplemental oxygen; Z87.891 Personal history of nicotine dependence; Z88.0 Allergy status to penicillin; Z79.82 Long term (current) use of aspirin; Z79.899 Other long term (current) drug therapy; Z79.01 Long term (current) use of anticoagulants; Z87.01 Personal history of pneumonia (recurrent); Z95.5 Presence of coronary angioplasty implant and graft; Z68.37 Body mass index [BMI] 37.0-37.9, adult; Z79.4 Long term (current) use of insulin
CPT/HCPCS: 71045; 78582; 80048; 81003; 82803; 82948; 83605; 83880; 84484; 85025; 85027; 85610; 85730; 87070; 87086; 87205; 87502; 93005; 93970; 94010; 94640; 94640 76; 94760; 94799; 99202; 99281; 99285; A9539; A9540; J1650; J1815; J1956; J2930; J7512

== ENCOUNTER 2018-01-20 15:46 | Inpatient (IN) | payer OTHER ==
[~2018-01-20] VITALS: Ht 167.6 cm; Wt 96.8 kg
[~2018-01-20 15:46] MED LIST changes: +ADULT ASPIRIN81 MG PO; +COUMADIN1 MG PO; +LOVENOX100 MG/1 M SC; +NORVASC2.5 MG PO
[2018-01-20 17:15] LABS: APPEARANCE CLOUDY ((CLEAR)); BILIRUBIN SMALL; BLOOD LARGE; COLOR AMBER ((YELLOW)); GLUCOSE (STRIP) 50; KETONES 5; LEUKOCYTES MODERATE; NITRITE NEGATIVE; PROTEIN (STRIP) 100; SPECIFIC GRAVITY 1.024 (1.000-1.030)
[2018-01-20 17:49] LABS: CARBON DIOXIDE (BICARBONATE) 32.4 MEQ/L (20-31)
[2018-01-20 17:55] LABS: HEMATOCRIT 26.8 % (36.0-46.0); MCH 29.6 PG (29.0-34.0); MCHC 33.2 G/DL (30.0-36.0); NRBC (%) 0.1 /100 WBC (0-0); PLATELET COUNT 177 K/uL (156-360); RBC DIS.WIDTH-CV 14.3 % (11.8-14.6); RBC DIS.WIDTH-SD 46.2 % (39-53); WHITE BLOOD COUNT 22.5 K/uL (4.1-10.2)
[2018-01-20 17:56] LABS: HEMOGLOBIN 8.9 G/DL (11.9-15.5); RED BLOOD COUNT 3.01 M/uL (3.80-5.20)
[2018-01-20 17:58] LABS: CHLORIDE 98 mEq/L (99-109); POTASSIUM 4.3 mEq/L (3.7-5.4); SODIUM 139 mEq/L (136-147)
[2018-01-20 18:04] LABS: GFR ESTIMATE (CALCULATED) 35 mL/min/; UREA NITROGEN (BUN) 41 mg/dL (9-23)
[2018-01-20 18:07] LABS: CREATININE 1.5 mg/dL (0.6-1.3); GLUCOSE 280 mg/dL (70-99)
[2018-01-20 18:09] LABS: TROP-I INTERPRETATION NEGATIVE; TROPONIN-I 0.04 ng/mL (0.0-0.30)
[2018-01-20 18:47] LABS: BACTERIA 1+ /HPF; EPITHELIAL CELLS 1+ /HPF; MUCUS NONE SEEN /LPF; RED BLOOD CELLS 15-20 /HPF (0-5); UCUL ADDED? YES
[2018-01-20] MEDS ORDERED: ADULT ASPIRIN R81 MG PO (23:52)
[2018-01-20] MEDS ORDERED: COUMADIN2 MG PO (23:54)
[2018-01-20] MEDS ORDERED: COUMADIN1 MG PO (23:54)
[2018-01-20] MEDS ORDERED: PREDNISONE10 MG PO ×2 (23:56→23:57)
[2018-01-21 06:15] LABS: CHLORIDE 102 mEq/L (99-109); POTASSIUM 3.6 mEq/L (3.7-5.4); SODIUM 140 mEq/L (136-147)
[2018-01-21 06:16] LABS: GLUCOSE 220 mg/dL (70-99)
[2018-01-21 06:20] LABS: CREATININE 1.2 mg/dL (0.6-1.3); GFR ESTIMATE (CALCULATED) 46 mL/min/
[2018-01-21 06:21] LABS: UREA NITROGEN (BUN) 42 mg/dL (9-23)
[2018-01-21 06:23] LABS: HEMATOCRIT 29.2 % (36.0-46.0); HEMOGLOBIN 9.7 G/DL (11.9-15.5); MCH 29.5 PG (29.0-34.0); MCHC 33.2 G/DL (30.0-36.0); MCV 88.8 FL (83-99); PLATELET COUNT 160 K/uL (156-360); RBC DIS.WIDTH-CV 14.4 % (11.8-14.6); RBC DIS.WIDTH-SD 45.7 % (39-53); RED BLOOD COUNT 3.29 M/uL (3.80-5.20); WHITE BLOOD COUNT 17.4 K/uL (4.1-10.2)
[2018-01-21 06:39] LABS: INTER. NORMALIZED RATIO 1.3
[2018-01-21 11:54] VITALS: BP 123/59
[2018-01-21 13:11] VITALS: BP 132/61
[2018-01-21 15:07] VITALS: BP 100/59
[2018-01-21 21:30] VITALS: BP 110/70
[2018-01-22 00:38] VITALS: BP 139/64
[2018-01-22 05:03] VITALS: BP 125/61
[2018-01-22 06:48] LABS: INTER. NORMALIZED RATIO 1.2
[2018-01-22 07:45] VITALS: BP 157/71
[2018-01-22 10:11] LABS: BASOPHIL (%) 0.2 % (0-1); EOSINOPHIL (%) 0 % (0-5); HEMATOCRIT 24.9 % (36.0-46.0); HEMOGLOBIN 8.1 G/DL (11.9-15.5); IMMATURE GRANULOCYTE (%) 2.8 % (0.0-0.7); LYMPHOCYTE (%) 7.6 % (15-42); MCH 28.9 PG (29.0-34.0); MCHC 32.5 G/DL (30.0-36.0); MCV 88.9 FL (83-99); MONOCYTE (%) 4.2 % (3-12); MONOCYTE COUNT 0.5 K/uL (0-0.8); NEUTROPHIL (%) 85.2 % (45-76); PLATELET COUNT 138 K/uL (156-360); RBC DIS.WIDTH-CV 14.3 % (11.8-14.6); RBC DIS.WIDTH-SD 46.6 % (39-53); WHITE BLOOD COUNT 12.9 K/uL (4.1-10.2)
[2018-01-22 10:48] LABS: CHLORIDE 105 MEQ/L (99-109); GFR ESTIMATE (CALCULATED) 56 mL/min/; GLUCOSE 229 mg/dL (70-99); POTASSIUM 4.2 MEQ/L (3.7-5.4); SODIUM 139 MEQ/L (136-147); UREA NITROGEN (BUN) 38 mg/dL (9-23)
[2018-01-22 13:26] VITALS: BP 110/55
[2018-01-22 16:00] VITALS: BP 130/67
[2018-01-22 19:50] VITALS: BP 128/63
[2018-01-23 00:42] VITALS: BP 146/63
[2018-01-23 04:55] VITALS: BP 136/62
[2018-01-23 05:32] LABS: INTER. NORMALIZED RATIO 1.4
[2018-01-23 06:17] LABS: CHLORIDE 108 MEQ/L (99-109); GFR ESTIMATE (CALCULATED) 56 mL/min/; GLUCOSE 306 mg/dL (70-99); POTASSIUM 4.4 MEQ/L (3.7-5.4); SODIUM 140 MEQ/L (136-147); UREA NITROGEN (BUN) 39 mg/dL (9-23)
[2018-01-23 06:30] LABS: HEMATOCRIT 25.5 % (36.0-46.0); MCH 28.6 PG (29.0-34.0); MCHC 31.4 G/DL (30.0-36.0); MCV 91.1 FL (83-99); PLATELET COUNT 137 K/uL (156-360); RBC DIS.WIDTH-CV 14.4 % (11.8-14.6); RBC DIS.WIDTH-SD 48.5 % (39-53); WHITE BLOOD COUNT 12.2 K/uL (4.1-10.2)
[2018-01-23 08:05] VITALS: BP 154/75
[2018-01-23 12:07] VITALS: BP 138/64
[2018-01-23 16:02] VITALS: BP 130/81
[2018-01-23 19:15] VITALS: BP 138/62
[2018-01-24 00:48] VITALS: BP 173/79
[2018-01-24 05:06] VITALS: BP 168/71
[2018-01-24 05:50] LABS: INTER. NORMALIZED RATIO 1.4
[2018-01-24 09:30] LABS: HEMATOCRIT 25.6 % (36.0-46.0); MCH 28.5 PG (29.0-34.0); MCHC 31.3 G/DL (30.0-36.0); MCV 91.1 FL (83-99); PLATELET COUNT 162 K/uL (156-360); RBC DIS.WIDTH-CV 14.6 % (11.8-14.6); RBC DIS.WIDTH-SD 48.8 % (39-53); RED BLOOD COUNT 2.81 M/uL (3.80-5.20); WHITE BLOOD COUNT 17.4 K/uL (4.1-10.2)
[2018-01-24 09:33] VITALS: BP 184/93
[2018-01-24 09:52] LABS: CHLORIDE 105 MEQ/L (99-109); CREATININE 0.8 MG/DL (0.6-1.3); GFR ESTIMATE (CALCULATED) > 59 mL/min/; GLUCOSE 180 mg/dL (70-99); POTASSIUM 4.5 MEQ/L (3.7-5.4); SODIUM 139 MEQ/L (136-147); UREA NITROGEN (BUN) 29 mg/dL (9-23)
[2018-01-24 12:15] VITALS: BP 129/60
[2018-01-24 15:47] VITALS: BP 128/62
[2018-01-24 19:45] VITALS: BP 143/70
[2018-01-25] VITALS: BP 145/65
[2018-01-25 04:15] VITALS: BP 156/66
[2018-01-25 05:18] LABS: INTER. NORMALIZED RATIO 1.3
[2018-01-25 09:00] VITALS: BP 134/70
[2018-01-25 11:47] VITALS: BP 176/79
[2018-01-25 15:53] VITALS: BP 131/63
[2018-01-25 19:00] VITALS: BP 134/68
[2018-01-26] VITALS: BP 149/72
[2018-01-26 04:00] VITALS: BP 143/70
[2018-01-26 05:31] LABS: INTER. NORMALIZED RATIO 1.3
[2018-01-26 05:38] LABS: CREATININE 0.8 MG/DL (0.6-1.3); GFR ESTIMATE (CALCULATED) > 59 mL/min/
[2018-01-26 07:30] VITALS: BP 175/72
[2018-01-26 11:56] VITALS: BP 168/73
[2018-01-26] MEDS ORDERED: AZITHROMYCIN500 M1 PO (12:34)
[2018-01-26] MEDS ORDERED: SPIRIVA RESPIMAT4 GM IH (12:35)
[2018-01-26] MEDS ORDERED: MUCINEX600 MG PO (12:39)
[2018-01-26] MEDS ORDERED: DULERA 100 MCG/13 GM IH (12:39)
[2018-01-26] MEDS ORDERED: PREDNISONE20 MG PO (12:41)
[2018-01-26] MEDS ORDERED: ATIVAN1 MG PO (12:44)
== END 2018-01-26 16:21 | DRG 166 ==
LOC: EME 15:46 → 4SOUTH 23:27 → EDOF 23:27 → ENRESERV 23:30 → 4SOUTH 01-21 11:48
PROVIDERS: Emergency Medicine; Family Medicine; Hospitalist; Internal Medicine; Nurse Practitioner Family; Physician Assistant
PROC: 02HV3DZ Insertion of Intraluminal Device into Superior Vena Cava, Percutaneous Approach (ICD-10-PCS; principal; 2018-01-25)
DX: J18.9 Pneumonia, unspecified organism (principal); Y95 Nosocomial condition; J96.21 Acute and chronic respiratory failure with hypoxia; J96.22 Acute and chronic respiratory failure with hypercapnia; R78.81 Bacteremia; B95.62 Methicillin resistant Staphylococcus aureus infection as the cause of diseases classified elsewhere; L03.311 Cellulitis of abdominal wall; M79.81 Nontraumatic hematoma of soft tissue; T45.515A Adverse effect of anticoagulants, initial encounter; N17.9 Acute kidney failure, unspecified; J44.0 Chronic obstructive pulmonary disease with (acute) lower respiratory infection; J44.1 Chronic obstructive pulmonary disease with (acute) exacerbation; D62 Acute posthemorrhagic anemia; I95.9 Hypotension, unspecified; I13.0 Hypertensive heart and chronic kidney disease with heart failure and stage 1 through stage 4 chronic kidney disease, or unspecified chronic kidney disease; N18.4 Chronic kidney disease, stage 4 (severe); E11.22 Type 2 diabetes mellitus with diabetic chronic kidney disease; I50.22 Chronic systolic (congestive) heart failure; Z86.718 Personal history of other venous thrombosis and embolism; D72.829 Elevated white blood cell count, unspecified; T38.0X5A Adverse effect of glucocorticoids and synthetic analogues, initial encounter; Z99.81 Dependence on supplemental oxygen; M10.9 Gout, unspecified; I42.9 Cardiomyopathy, unspecified; E78.5 Hyperlipidemia, unspecified; K21.9 Gastro-esophageal reflux disease without esophagitis; H26.9 Unspecified cataract; F41.9 Anxiety disorder, unspecified; F31.9 Bipolar disorder, unspecified; E66.9 Obesity, unspecified; F03.90 Unspecified dementia, unspecified severity, without behavioral disturbance, psychotic disturbance, mood disturbance, and anxiety; Z66 Do not resuscitate; Z79.82 Long term (current) use of aspirin; Z86.73 Personal history of transient ischemic attack (TIA), and cerebral infarction without residual deficits; Z79.01 Long term (current) use of anticoagulants; Z87.01 Personal history of pneumonia (recurrent); Z95.0 Presence of cardiac pacemaker; Z88.0 Allergy status to penicillin; Z87.891 Personal history of nicotine dependence
CPT/HCPCS: 70450; 71045; 71250; 74176; 76937; 80048; 80048 91; 80202; 81003; 82272; 82565; 82803; 82948; 83605; 83880; 84484; 85025; 85027; 85610; 86850; 86900; 86901; 87040; 87077; 87086; 87186; 87801; 93005; 93306; 94640; 94640 76; 94799; 99202; 99281; 99285; C1751; C1769; C1894; C9113; J0690; J0692; J0696; J1644; J1650; J1815; J2543; J2920; J3010; J3370; J7030; J7120; J7512; S0073

== ENCOUNTER 2018-03-07 14:39 | Emergency (ER) | payer OTHER ==
[~2018-03-07] VITALS: Ht 157.5 cm; Wt 98.7 kg
[~2018-03-07 14:39] MED LIST changes: +ADULT ASPIRIN R81 MG PO; +AZITHROMYCIN500 M1 PO; +COUMADIN2 MG PO; +DULERA 100 MCG/13 GM IH
[2018-03-07 15:05] LABS: HEMATOCRIT 27.2 % (36.0-46.0); HEMOGLOBIN 8.7 G/DL (11.9-15.5); MCH 29.2 PG (29.0-34.0); MCV 91.3 FL (83-99); PLATELET COUNT 208 K/uL (156-360); RBC DIS.WIDTH-SD 49.7 % (39-53); RED BLOOD COUNT 2.98 M/uL (3.80-5.20)
[2018-03-07 15:14] LABS: ALBUMIN 3.2 g/dL (3.2-4.8); CHLORIDE 106 mEq/L (99-109); POTASSIUM 4.2 mEq/L (3.7-5.4); SODIUM 141 mEq/L (136-147)
[2018-03-07 15:16] LABS: GLUCOSE 104 mg/dL (70-99)
[2018-03-07 15:17] LABS: TOTAL PROTEIN 6.2 g/dL (6.4-8.3)
[2018-03-07 15:18] LABS: TOTAL BILIRUBIN 0.4 mg/dL (0.0-1.0)
[2018-03-07 15:20] LABS: ALKALINE PHOSPHATASE 104 IU/L (3-129); CREATININE 1.2 mg/dL (0.6-1.3); GFR ESTIMATE (CALCULATED) 46 mL/min/
[2018-03-07 15:21] LABS: UREA NITROGEN (BUN) 32 mg/dL (9-23)
[2018-03-07 15:22] LABS: AST (GOT) 23 IU/L (2-34)
[2018-03-07 15:23] LABS: ALT (GPT) 21 IU/L (3-49)
[2018-03-07 15:27] LABS: TROP-I INTERPRETATION NEGATIVE; TROPONIN-I 0.04 ng/mL (0.0-0.30)
[2018-03-07] MEDS ORDERED: LASIX40 MG PO (16:59)
[2018-03-07] MEDS ORDERED: K-DUR20 MEQ PO (17:00)
[2018-03-07 18:55] VITALS: BP 98/65
== END 2018-03-07 19:09 ==
LOC: EME 14:39
PROVIDERS: Emergency Medicine Emergency Medical Services
DX: I50.9 Heart failure, unspecified (principal); J44.9 Chronic obstructive pulmonary disease, unspecified; I12.9 Hypertensive chronic kidney disease with stage 1 through stage 4 chronic kidney disease, or unspecified chronic kidney disease; E11.22 Type 2 diabetes mellitus with diabetic chronic kidney disease; N18.9 Chronic kidney disease, unspecified; E78.5 Hyperlipidemia, unspecified; K21.9 Gastro-esophageal reflux disease without esophagitis; F03.90 Unspecified dementia, unspecified severity, without behavioral disturbance, psychotic disturbance, mood disturbance, and anxiety; H26.9 Unspecified cataract; F41.9 Anxiety disorder, unspecified; F32.9 Major depressive disorder, single episode, unspecified; F31.9 Bipolar disorder, unspecified; Z79.82 Long term (current) use of aspirin; Z79.4 Long term (current) use of insulin; Z79.01 Long term (current) use of anticoagulants; Z87.891 Personal history of nicotine dependence; Z86.73 Personal history of transient ischemic attack (TIA), and cerebral infarction without residual deficits; Z87.39 Personal history of other diseases of the musculoskeletal system and connective tissue; Z87.01 Personal history of pneumonia (recurrent); Z87.440 Personal history of urinary (tract) infections; Z95.0 Presence of cardiac pacemaker; Z88.0 Allergy status to penicillin; Z91.013 Allergy to seafood; Z88.8 Allergy status to other drugs, medicaments and biological substances
CPT/HCPCS: 71045; 80053; 81003; 83880; 84484; 85027; 93005; 99281; 99285

== ENCOUNTER 2018-03-13 14:44 | Inpatient (IN) | payer OTHER ==
[~2018-03-13] VITALS: Ht 157.5 cm; Wt 98.0 kg
[~2018-03-13 14:44] MED LIST changes: +K-DUR20 MEQ PO; +OMEPRAZOLE40 M1 PO
[2018-03-13 16:19] LABS: APPEARANCE CLOUDY ((CLEAR)); BILIRUBIN NEGATIVE; BLOOD SMALL; COLOR YELLOW ((YELLOW)); GLUCOSE (STRIP) NEGATIVE; KETONES NEGATIVE; LEUKOCYTES LARGE; NITRITE NEGATIVE; PROTEIN (STRIP) 30; SPECIFIC GRAVITY 1.012 (1.000-1.030); UROBILINOGEN 0.2 MG/DL (0.2-1.0)
[2018-03-13 16:34] LABS: HEMATOCRIT 30.3 % (36.0-46.0); HEMOGLOBIN 9.5 G/DL (11.9-15.5); MCH 28.7 PG (29.0-34.0); MCHC 31.4 G/DL (30.0-36.0); MCV 91.5 FL (83-99); PLATELET COUNT 208 K/uL (156-360); RBC DIS.WIDTH-CV 15.2 % (11.8-14.6); RBC DIS.WIDTH-SD 50.4 % (39-53); RED BLOOD COUNT 3.31 M/uL (3.80-5.20); WHITE BLOOD COUNT 8.3 K/uL (4.1-10.2)
[2018-03-13 16:45] LABS: ALBUMIN 3.5 g/dL (3.2-4.8)
[2018-03-13 16:46] LABS: CHLORIDE 104 mEq/L (99-109); POTASSIUM 4.5 mEq/L (3.7-5.4); SODIUM 143 mEq/L (136-147)
[2018-03-13 16:48] LABS: TOTAL PROTEIN 6.6 g/dL (6.4-8.3)
[2018-03-13 16:50] LABS: TOTAL BILIRUBIN 0.4 mg/dL (0.0-1.0)
[2018-03-13 16:51] LABS: ALKALINE PHOSPHATASE 114 IU/L (3-129)
[2018-03-13 16:51] LABS: BACTERIA 1+ /HPF; EPITHELIAL CELLS 1+ /HPF; MUCUS NONE SEEN /LPF; RED BLOOD CELLS 0-5 /HPF (0-5); UCUL ADDED? YES; WHITE BLOOD CELLS 30-40 /HPF (0-5)
[2018-03-13 16:52] LABS: CREATININE 1.2 mg/dL (0.6-1.3); GFR ESTIMATE (CALCULATED) 46 mL/min/
[2018-03-13 16:53] LABS: AST (GOT) 18 IU/L (2-34); UREA NITROGEN (BUN) 25 mg/dL (9-23)
[2018-03-13 16:55] LABS: ALT (GPT) 20 IU/L (3-49)
[2018-03-13 17:01] LABS: GLUCOSE 171 mg/dL (70-99)
[2018-03-13 17:02] LABS: TROP-I INTERPRETATION NEGATIVE; TROPONIN-I 0.03 ng/mL (0.0-0.30)
[2018-03-13] MEDS ORDERED: FUROSEMIDE20 MG PO (17:43)
[2018-03-13] MEDS ORDERED: KLOR-CON M2020 MEQ PO (17:45)
[2018-03-13] MEDS ORDERED: SPIRIVA RESPIMAT4 GM IH (17:46)
[2018-03-13 20:00] VITALS: BP 117/69
[2018-03-14 07:11] VITALS: BP 122/69
[2018-03-14 11:58] LABS: HEMOGLOBIN 8.9 G/DL (11.9-15.5); MCH 27.8 PG (29.0-34.0); MCHC 30.7 G/DL (30.0-36.0); MCV 90.6 FL (83-99); PLATELET COUNT 190 K/uL (156-360); RBC DIS.WIDTH-CV 15.2 % (11.8-14.6); RBC DIS.WIDTH-SD 50.2 % (39-53); WHITE BLOOD COUNT 6.7 K/uL (4.1-10.2)
[2018-03-14 12:20] LABS: ALBUMIN 3.3 G/DL (3.2-4.8); ALKALINE PHOSPHATASE 94 IU/L (3-129); ALT (GPT) 15 IU/L (3-49); AST (GOT) 16 IU/L (2-34); CHLORIDE 105 MEQ/L (99-109); CREATININE 1.3 MG/DL (0.6-1.3); GFR ESTIMATE (CALCULATED) 42 mL/min/; GLUCOSE 173 mg/dL (70-99); HDL CHOLESTEROL 27 MG/DL (Desirable>=50); LDL CHOLESTEROL 70 mg/dL (Desirable<100); NON-HDL CHOLESTEROL 99 mg/dL (Desirable<160); POTASSIUM 4.3 MEQ/L (3.7-5.4); SODIUM 143 MEQ/L (136-147); TOTAL BILIRUBIN 0.3 MG/DL (0.0-1.0); TOTAL CHOLESTEROL 126 mg/dL (Desirable<200); TOTAL PROTEIN 6.2 G/DL (6.4-8.3); TRIGLYCERIDES 144 MG/DL (Normal: <150); UREA NITROGEN (BUN) 29 mg/dL (9-23)
[2018-03-14 13:34] VITALS: BP 122/58
[2018-03-15 00:34] VITALS: BP 146/70
[2018-03-15 08:08] VITALS: BP 152/78
[2018-03-15 09:27] LABS: HEMOGLOBIN A1c (GLYCOHEMOGLOB) 6.5 % (Below 5.7)
[2018-03-15 09:27] LABS: HEMOGLOBIN 9.3 G/DL (11.9-15.5); MCH 27.9 PG (29.0-34.0); MCV 90.1 FL (83-99); PLATELET COUNT 190 K/uL (156-360); RBC DIS.WIDTH-SD 49.9 % (39-53); RED BLOOD COUNT 3.33 M/uL (3.80-5.20); WHITE BLOOD COUNT 6.6 K/uL (4.1-10.2)
[2018-03-15 11:00] LABS: CHLORIDE 104 MEQ/L (99-109); CREATININE 1.2 MG/DL (0.6-1.3); GFR ESTIMATE (CALCULATED) 46 mL/min/; GLUCOSE 135 mg/dL (70-99); SODIUM 143 MEQ/L (136-147); UREA NITROGEN (BUN) 24 mg/dL (9-23)
[2018-03-15 16:18] VITALS: BP 122/78
[2018-03-16 00:40] VITALS: BP 165/77
[2018-03-16 07:30] VITALS: BP 134/76
== END 2018-03-16 14:20 | DRG 689 ==
LOC: EME 14:44 → EDOF 18:15 → 5SOUTH 18:15 → ENRESERV 18:16 → 5SOUTH 19:18
PROVIDERS: Emergency Medicine; Internal Medicine; Physician Assistant Medical
DX: N39.0 Urinary tract infection, site not specified (principal); I63.9 Cerebral infarction, unspecified; G93.40 Encephalopathy, unspecified; J96.10 Chronic respiratory failure, unspecified whether with hypoxia or hypercapnia; E11.22 Type 2 diabetes mellitus with diabetic chronic kidney disease; I13.0 Hypertensive heart and chronic kidney disease with heart failure and stage 1 through stage 4 chronic kidney disease, or unspecified chronic kidney disease; I50.9 Heart failure, unspecified; G81.91 Hemiplegia, unspecified affecting right dominant side; J43.9 Emphysema, unspecified; F03.90 Unspecified dementia, unspecified severity, without behavioral disturbance, psychotic disturbance, mood disturbance, and anxiety; K21.9 Gastro-esophageal reflux disease without esophagitis; Z95.0 Presence of cardiac pacemaker; R29.706 NIHSS score 6; Z87.891 Personal history of nicotine dependence; Z86.73 Personal history of transient ischemic attack (TIA), and cerebral infarction without residual deficits; N18.9 Chronic kidney disease, unspecified; E78.5 Hyperlipidemia, unspecified; F31.9 Bipolar disorder, unspecified; Z66 Do not resuscitate; Z86.718 Personal history of other venous thrombosis and embolism; E66.3 Overweight; Z68.37 Body mass index [BMI] 37.0-37.9, adult; Z74.01 Bed confinement status; R29.810 Facial weakness; Z79.4 Long term (current) use of insulin
CPT/HCPCS: 70450; 71046; 80048; 80053; 80061; 81003; 82948; 83036; 84484; 85027; 87040; 87077; 87086 GA; 92526 GN; 92610 GN; 93005; 93880; 94640; 94640 76; 94799; 99202; 99281; 99285; J0696; J1650; J1815; J7030